=== PATIENT | female | born 1995 | race Caucasian/White ===

== ENCOUNTER → 2019-05-25 17:48 | Outpatient (CLI) | payer BC, SELFPAY ==
[2019-05-26 17:05] LABS: Chlamydia Trachomatis by PCR Negative (Negative); Neisserai gonorrhoeae by PCR Negative (Negative); Probe Check PASS; Sample Adequacy Control PASS; Specimen Processing Control PASS
[2019-06-01 13:02] LABS: HPV Reflexed? NOT INDICATED
== END ==
PROVIDERS: Referring Provider Obstetrics & Gynecology; Visit Provider Obstetrics & Gynecology
DX: Z12.4 Encounter for screening for malignant neoplasm of cervix (principal)
CPT/HCPCS: 87491; 87591; 88175; G0145

== ENCOUNTER → 2023-09-05 | Outpatient (CLI) | payer OTHER, SELFPAY ==
[2023-09-05 13:20] LABS: Absolute Lymphocyte Count 1.79 X10^3/uL (0.83-4.51); Absolute Neutrophil Count 9.3 X10^3/uL (2.0-7.7); Basophil# 0.08 X10^3/uL; Basophil% 0.7 % (0-1); Eosinophil# 0.08 X10^3/uL; Eosinophils% 0.7 % (0-5); Hemoglobin 14.4 g/dL (12.0-15.0); Lymphocyte # 1.79 X10^3/ul (0.83-4.51); Lymphocyte % 14.7 % (19-41); Mean Corp Hgb Conc 34.3 g/dL (32-36); Mean Corpuscular Hgb 29.4 pg (27.0-32.0); Mean Corpuscular Volume 85.9 fL (81-99); Monocyte# 0.88 X10^3/uL; Monocyte% 7.2 % (0-10); NRBC Flagged by Analyzer 0 % (0-5); Neutrophil # 9.25 X10^3/uL (2.7-7.7); Neutrophil % 75.9 % (47-70); Platelet Count 243 K/mm3 (150-450); RBC Distribution Width CV 12.7 % (11.6-14.6); RBC Distribution Width SD 39.5 fl (35.1-43.9); Red Blood Count 4.89 M/mm3 (4.2-5.4); White Blood Count 12.2 K/mm3 (4.4-11.0)
[2023-09-05 13:25] LABS: NATERA MAILED SPECIMEN
[2023-09-05 13:51] LABS: Thyroid Stim Hormone (TSH) 1.66 uIU/mL (0.358-3.74)
[2023-09-05 14:28] LABS: HIV - WCH Non-Reactive (Nonreactive); Hepatitis B Surface Antigen Non-Reactive (Nonreactive); Hepatitis C Antibody Non-Reactive (Nonreactive); Rubella IgG Reactive (Nonreactive); Syphilis Antibodies Non-reactive
[2023-09-06 04:07] LABS: Thyroid Peroxidase AB 531 IU/mL (0-34)
[2023-09-10 07:08] LABS: Chlamydia By Nucleic Acid AMP Negative (Negative); Gonococcus By Nucleic Acid AMP Negative (Negative)
[2023-09-10 23:17] LABS: HPV Reflexed? NOT INDICATED
== END | disposition home or self-care (01) ==
PROVIDERS: PCP Family Medicine; Referring Provider Advanced Practice Midwife; Visit Provider Advanced Practice Midwife
DX: O09.90 Supervision of high risk pregnancy, unspecified, unspecified trimester (principal); Z3A.00 Weeks of gestation of pregnancy not specified
CPT/HCPCS: 36415; 84443; 85025; 86376; 86703; 86762; 86780; 86803; 86850; 86900; 86901; 87086; 87088; 87340; 87491; 87591; 88175; G0145

== ENCOUNTER → 2023-09-21 | Outpatient (CLI) | payer OTHER, SELFPAY ==
--- NOTE | 2023-09-21 07:52 | US_ITS ---
STUDY: THYROID ULTRASOUND REASON FOR EXAM: Female, 28 years old. Palpably enlarged thyroid TECHNIQUE: Ultrasound evaluation of the thyroid was performed with real-time and static carlos-scale imaging. COMPARISON: None. FINDINGS: RIGHT LOBE: The right lobe of the thyroid gland measures 5 x 1.7 x 1.3 cm. There is a homogeneous echotexture. There are no demonstrated solid, cystic or complex lesions. LEFT LOBE: The left lobe of the thyroid gland measures 3.9 x 1.5 x 1.2 cm. There is a homogeneous echotexture. There are no demonstrated solid, cystic or complex lesions. ISTHMUS: The isthmus measures 0.34 cm. The regional lymph nodes are normal. US/Thyroid IMPRESSION: Normal ultrasound examination of the thyroid. Electronically Signed: Ethan Cheney MD at 12:16 EDT ,
== END | disposition home or self-care (01) ==
PROVIDERS: PCP Family Medicine; Referring Provider Advanced Practice Midwife; Visit Provider Advanced Practice Midwife
DX: E04.9 Nontoxic goiter, unspecified (principal)
CPT/HCPCS: 76536

== ENCOUNTER → 2023-11-29 | Outpatient (CLI) | payer OTHER, SELFPAY | END | disposition home or self-care (01) | LOC: LABSPEC 12:09 | PROVIDERS: PCP Family Medicine; Referring Provider Registered Nurse; Visit Provider Registered Nurse | DX: Z34.90 Encounter for supervision of normal pregnancy, unspecified, unspecified trimester (principal); R35.0 Frequency of micturition | CPT/HCPCS: 87086; 87088 ==

== ENCOUNTER → 2023-12-23 | Outpatient (CLI) | payer OTHER, SELFPAY ==
[2023-12-23 12:03] LABS: Absolute Lymphocyte Count 1.59 X10^3/uL (0.83-4.51); Absolute Neutrophil Count 8.1 X10^3/uL (2.0-7.7); Basophil# 0.07 X10^3/uL; Basophil% 0.7 % (0-1); Eosinophil# 0.14 X10^3/uL; Eosinophils% 1.3 % (0-5); Hematocrit 38.8 % (37-47); Hemoglobin 12.8 g/dL (12.0-15.0); Lymphocyte # 1.59 X10^3/ul (0.83-4.51); Lymphocyte % 14.8 % (19-41); Mean Corpuscular Hgb 29.4 pg (27.0-32.0); Mean Platelet Vol. 10.1 fl (6.2-12.0); Monocyte# 0.67 X10^3/uL; Monocyte% 6.2 % (0-10); NRBC Flagged by Analyzer 0 % (0-5); Neutrophil # 8.09 X10^3/uL (2.7-7.7); Neutrophil % 75.1 % (47-70); Platelet Count 204 K/mm3 (150-450); RBC Distribution Width CV 13.1 % (11.6-14.6); RBC Distribution Width SD 42.7 fl (35.1-43.9); Red Blood Count 4.36 M/mm3 (4.2-5.4); White Blood Count 10.8 K/mm3 (4.4-11.0)
[2023-12-23 13:18] LABS: HIV - WCH Non-Reactive (Nonreactive); Syphilis Antibodies Non-reactive
[2023-12-23 13:27] LABS: Glucose Challenge Gest 1H 50g 157 mg/dL (70-140)
== END | disposition home or self-care (01) ==
LOC: LAB 10:59
PROVIDERS: PCP Family Medicine; Visit Provider Registered Nurse
DX: O44.40 Low lying placenta NOS or without hemorrhage, unspecified trimester (principal); O99.280 Endocrine, nutritional and metabolic diseases complicating pregnancy, unspecified trimester; E04.9 Nontoxic goiter, unspecified; Z3A.00 Weeks of gestation of pregnancy not specified
CPT/HCPCS: 36415; 82950; 85025; 86703; 86780

== ENCOUNTER 2023-12-28 12:14 | Outpatient (CLI) | payer OTHER, SELFPAY ==
--- OUTSIDE RECORDS SUMMARY | 2023-12-28 12:27 | XMS RPT_ITS | CCD ---
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 [id number] 1997 Unknown [id number] 2.16. [id number] Unknown [id number] Summary Purpose Family History No Family History Records FoundNo Family History Records Found Advance Directives No Advanced Directives Records FoundNo Advanced Directives Records Found Additional Source Comments INFORMATION SOURCE (unrecogn ized section and content) DATE CREATED AUTHOR AUTHOR'S ORGANIZ ATION 11/12/2023 [facility] FOR RECORDS PERTAINING TO PATIENTS WHO ARE OR HAVE BEEN ENROLLED IN A CHEMICAL DEPENDENCY/SUBSTANCEABUSE PROGRAM, SOME INFORMATION MAY BE OMITTED. This clinical summary was aggregated from multiple sources. Caution should be exercised in using it in the provision of clinical care. This summary normalizes information from multiple sources, and as a consequence, information in this document may materially change the coding, format and clinical context of patient data. In addition, data may be omitted in some cases. CLINICAL DECISIONS SHOULD BE BASED ON THE PRIMARY CLINICAL RECORDS. [facility]. provides no warranty or guarantee of the accuracy or completeness of information in this document.
[2023-12-28 12:35] VITALS: BP 138/78; PULSE 99; TEMP 36.8; O2SAT 95
[2023-12-28 12:53] VITALS: BMI 33.6
--- NOTE | 2023-12-28 13:01 | OB.TRI.PN ---
Progress Notes Date of Service: 12/28/23 Progress Note: Patient presents for triage evaluation secondary to decreased movement FHT: 145 Moderate variability reactive no decelerations category I tracing [place]: no Contractions Assessment and plan: moderate variability and accelerations. Reactive NST, reassuring maternal and status patient discharged to home to follow-up at next appointment . See problem list details for additional plan information. Charges/Coding Multi Select Codes Urinary/Genital Urinary/Genital CPT Codes: 21717-92 non-stress test Interp Assessment & Plan (1) Decreased movement: COMMENT: 27 weeks reactive in WP. d/c home
== END 2023-12-28 13:05 | disposition home or self-care (01) ==
LOC: WPOUT 12:25 → WP 12:26
PROVIDERS: PCP Family Medicine; Visit Provider Advanced Practice Midwife
DX: O36.8120 Decreased fetal movements, second trimester, not applicable or unspecified (principal); Z3A.27 27 weeks gestation of pregnancy
CPT/HCPCS: 59025; 59050; 99221; G0378

== ENCOUNTER → 2023-12-30 | Outpatient (CLI) | payer OTHER, SELFPAY ==
--- OUTSIDE RECORDS SUMMARY | 2023-12-30 06:52 | XMS RPT_ITS | CCD ---
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 [id number] 1997 Unknown [id number] 2.16. [id number] Unknown [id number] Summary Purpose Family History No Family History Records FoundNo Family History Records Found Advance Directives No Advanced Directives Records FoundNo Advanced Directives Records Found Additional Source Comments INFORMATION SOURCE (unrecogn ized section and content) DATE CREATED AUTHOR AUTHOR'S ORGANIZ ATION 11/12/2023 [facility] FOR RECORDS PERTAINING TO PATIENTS WHO ARE [...] BE BASED ON THE PRIMARY CLINICAL RECORDS. [facility]. provides no warranty or guarantee of the accuracy or completeness of information in this document.
[2023-12-30 08:19] LABS: Glucose GTT-Gestation. Fasting 101 mg/dL (<105)
[2023-12-30 09:22] LABS: Glucose GTT-Gestational 1 Hr 187 mg/dL (<190)
[2023-12-30 10:14] LABS: Glucose GTT-Gestational 2 Hr 168 mg/dL (<165)
[2023-12-30 11:11] LABS: Glucose GTT-Gestational 3 Hr 128 L (<145)
== END | disposition home or self-care (01) ==
LOC: LAB 06:46
PROVIDERS: PCP Family Medicine; Referring Provider Registered Nurse; Visit Provider Registered Nurse
DX: Z13.1 Encounter for screening for diabetes mellitus (principal)
CPT/HCPCS: 36415; 82951; 82952

== ENCOUNTER 2024-01-14 07:37 | Outpatient (RCR) | payer OTHER, SELFPAY | END 2024-01-23 23:59 | LOC: DC 07:37 | PROVIDERS: PCP Family Medicine; Referring Provider Advanced Practice Midwife; Visit Provider Advanced Practice Midwife | DX: O24.419 Gestational diabetes mellitus in pregnancy, unspecified control (principal) | CPT/HCPCS: 97802; 97803 ==

== ENCOUNTER → 2024-01-24 | Outpatient (CLI) | payer OTHER, SELFPAY ==
--- NOTE | 2024-01-24 16:55 | US_ITS ---
ACR Level 3 findings have been noted. An addendum which confirms receipt of the report will follow. EXAM: US , LIMITED CLINICAL INDICATION: GDM TECHNIQUE: Real-time limited ultrasound of the maternal uterus with image documentation. COMPARISON: No relevant prior studies available. FINDINGS: LIMITATIONS: Limited anatomic assessment secondary to gestational age. FETUS: Single viable IUP. There is a nuchal cord best assessed on cine images provided by the imaging index clerk. GESTATIONAL AGE: Estimated gestational age: 32 weeks, 2 days. JACINTO: 03/18/2024. BPD: 7.84 cm. HC: 29.60 cm. AC: 28.52 cm. FL: 6.19 cm. POSITION: Cephalic presentation. HEART RATE: heart rate is 142 bpm. PLACENTA: Anterior placenta. AMNIOTIC FLUID: Amniotic fluid volume is 14.5 cm with largest fluid pocket of 4.9 cm. CERVIX: The cervix measures 3.7 cm. The internal cervical os closed. US/OB Limited With Biometrics IMPRESSION: 1. Single viable IUP. 2. There is a nuchal cord best assessed on cine images provided by the imaging index clerk. 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 Electronically Signed: Lamont Nolen DO at 16:55 EST ,
== END | disposition home or self-care (01) ==
PROVIDERS: PCP Family Medicine; Referring Provider Obstetrics & Gynecology; Visit Provider Obstetrics & Gynecology
DX: O24.419 Gestational diabetes mellitus in pregnancy, unspecified control (principal); Z3A.00 Weeks of gestation of pregnancy not specified
CPT/HCPCS: 76816

== ENCOUNTER → 2024-01-28 | Outpatient (CLI) | payer OTHER, SELFPAY ==
--- OUTSIDE RECORDS SUMMARY | 2024-01-28 10:20 | XMS RPT_ITS | CCD ---
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 [employer] Name Role Phone JAMIN RAMIREZ Referring UnavailLUCIANA Gray Attending Unavailable CHEYENNE ARTHUR Primary Care Unavailable JAMIN RAMIREZ Attending UnavailJAMIN Schuster Referring Unavailnilsa e CHEYENNE ARTHUR Primary Care Unavailable JAMIN RAMIREZ Referring UnavailCHEYENNE Pierce Primary Care Unavailable PIPER SCHMIDT Attending Unavailable Results Test Name Value Interpretation Reference Range Facil ity Encounters Encounter Date Encounter Type Care Provider Facility Start: 01-02-2024 End: 01-02-2024 ambulatory JAMIN RAMIREZ [facility] Start: 11-11-2023 ambulatory JAMIN RAMIREZ [facility] Start: 10-31-2023 End: 10-31-2023 ambulatory JAMIN RAMIREZ [facility] spital Payers Date Payer Category Payer Unknown [id number] 2.16. [id number] 1997 Unknown [id number] 2.16. [id number] 1997 Unknown [id number] 2.16. [id number] Unknown [id number] Unknown [id number] Unknown [id number] Summary Purpose Family History No Family History Records FoundNo Family History Records Found Advance Directives No Advanced Directives Records FoundNo Advanced Directives Records Found Additional Source Comments INFORMATION SOURCE (unrecogn ized section and content) DATE CREATED AUTHOR AUTHOR'S ORGANIZ ATION 01/07/2024 [facility] FOR RECORDS PERTAINING TO PATIENTS WHO [...] BE BASED ON THE PRIMARY CLINICAL RECORDS. [facility] [employer], [facility]. provides no warranty or guarantee of the accuracy or completeness of information in this document.
[2024-01-28 10:47] LABS: T4 Free Direct 0.63 ng/dL (0.76-1.46); Thyroid Stim Hormone (TSH) 1.27 uIU/mL (0.358-3.74)
[2024-01-28 11:09] LABS: Free T3 2.3 pg/mL (2.18-3.98)
== END | disposition home or self-care (01) ==
LOC: LAB 09:47
PROVIDERS: Advanced Practice Midwife; PCP Family Medicine; Referring Provider Internal Medicine Endocrinology, Diabetes & Metabolism; Visit Provider Internal Medicine Endocrinology, Diabetes & Metabolism
DX: E04.9 Nontoxic goiter, unspecified (principal); E06.3 Autoimmune thyroiditis
CPT/HCPCS: 36415; 84439; 84443; 84481

== ENCOUNTER → 2024-03-02 | Outpatient (CLI) | payer OTHER, SELFPAY | END | disposition home or self-care (01) | LOC: LABSPEC 13:02 | PROVIDERS: Referring Provider Obstetrics & Gynecology; Visit Provider Obstetrics & Gynecology | DX: O09.90 Supervision of high risk pregnancy, unspecified, unspecified trimester (principal); Z3A.00 Weeks of gestation of pregnancy not specified | CPT/HCPCS: 87077; 87081; 87186 ==

== ENCOUNTER → 2024-03-03 | Outpatient (CLI) | payer OTHER, SELFPAY ==
--- NOTE | 2024-03-03 14:04 | US_ITS ---
STUDY: SECOND AND THIRD TRIMESTER OBSTETRICAL ULTRASOUND REASON FOR EXAM: Female, 28 years old . growth. LMP: June 20, 2023. TECHNIQUE: Transabdominal TECHNICAL QUALITY: Adequate. PRIOR ULTRASOUND: Comparison is made with prior study January 24, 2024. FINDINGS: There is a single intrauterine fetus. The fetus is in a cephalic presentation. There is demonstrated cardiac activity with a heart rate of 130 bpm. There is a normal amniotic fluid volume. The largest amniotic fluid pocket measures 5.2 cm. The amniotic fluid index (MI) is 12.2 cm. The placenta is anterior in location and is not low lying. There are Grade 3 placental changes. The cervix was not measured due to the head position. The adnexal regions are not visualized. BIOMETRY: BPD: 8.62 cm: 34 weeks, 5 days HC: 32.72 cm: 37 weeks, 1 days AC: 33.46 cm: 37 weeks, 3 days FL: 7.31 cm: 37 weeks, 3 days CI: 75% FL/BPD: 85% FL/HC: FL/AC: 22% HC/AC: 0.98 age by current US: 37 weeks, 1 days. JACINTO by current US: March 23, 2024. Estimated weight: 3097 grams, +/- 465 grams, 63 %. age by prior US: 37 weeks, 6 days. JACINTO by prior US: March 18, 2024. Age by LMP: 36 weeks, 5 days. JACINTO by LMP: March 26, 2024. US/OB Limited With Biometrics IMPRESSION: Single live intrauterine gestation with a mean gestational age of 37 weeks and 6 days. The measurements obtained today fall within the normal expected range. Electronically Signed: Steve Hinson MD at 12:23 EDT ,
== END | disposition home or self-care (01) ==
PROVIDERS: PCP Family Medicine; Referring Provider Obstetrics & Gynecology; Visit Provider Obstetrics & Gynecology
DX: O24.419 Gestational diabetes mellitus in pregnancy, unspecified control (principal); Z3A.00 Weeks of gestation of pregnancy not specified
CPT/HCPCS: 76816

== ENCOUNTER 2024-03-19 19:13 | Inpatient (IN) | payer OTHER, SELFPAY ==
[2023-12-28 12:35] VITALS: RESP 16
--- NOTE | 2024-03-19 19:38 | HP.PCM.OB_ITS ---
HPI - General General Date of Admission: 03/19/24 Date of Service: 03/19/24 HPI Narrative LEANA BAY, is a 28 F 39.0 weeks who presents to unit for IOL secondary to GDM Maternal Data Information JACINTO Calculator Estimated Delivery Date Method Current WG Current Estimate 03/26/24 LMP (Certain) 39w 0d Final JACINTO: 03/26/24 Final JACINTO Source: US >20 weeks Gestational age: 39.0 PFSH PFSH Medical History Thelma's thyroiditis Home Medications vit,calcium no.40-iron fum 27 mg iron-folate no.1 1 mg tablet (PNV- Select) 1 tab PO 09/05/23 [History Last Taken Unknown] sodium chloride 0.65 % nasal spray aerosol ([place] Saline) 2 spray intranasal Q4H 11/29/23 [History Last Taken Unknown] blood sugar diagnostic (Blood Glucose Test strips) #120 ea 12/30/23 [Rx Last Taken Unknown] blood-glucose meter #1 ea 12/30/23 [Rx Last Taken Unknown] lancets #200 ea 12/30/23 [Rx Last Taken Unknown] aspirin 81 mg tablet,delayed release 81 mg PO DAILY 01/28/24 [History Last Taken Unknown] levothyroxine 88 mcg tablet 88 mcg PO DAILY #90 tabs 01/28/24 [Rx Last Taken Unknown] metformin 1,000 mg tablet 1,000 mg PO BID #60 tabs 01/28/24 [Rx Last Taken Unknown] BD Ultra-Fine Domitila Pen Needle 32 gauge x 5/32 (pen needle, diabetic) #100 ea 02/03/24 [Rx Last Taken Unknown] BD Ultra-Fine Mini Pen Needle 31 gauge x 3/16 (pen needle, diabetic) #100 ea 02/06/24 [Rx Last Taken Unknown] insulin NPH isoph U-100 human 100 unit/mL (3 mL) subcutaneous pen (Humulin N NPH U-100 Insulin KwikPen) 30 unit subcut BID 02/18/24 [History Last Taken Unknown] Allergy/AdvReac Type Severity Reaction Status Date / Time No Known Allergies Allergy Verified 03/19/24 09:18 Family History Unknown Breast cancer Father Asthma Grandmother No problems noted. 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 History 1 Elective abortions Hx Para 0 Spontaneous abortions Hx # Term Pregnancies Ectopic pregnancies Hx # Pregnancies Multiple births # of living children Visit Details Expected Delivery Route/Plan Labor Preferences- CB/BF classes: enc, planning on all 3 labor support person:Yoni labor intervention preferences: [] pain management options preferred: epidural cut cord/dad catch: yes : yes PP control planned: discussed discussed possible routes of delivery and associated risks: [] special requests: [] Plans Covid status: + 09/2023 Flu vaccine: declines Tdap vaccine: [] Rhogam: NA LARC form signed: yes Problem list reviewed and updated with the most current plan of care details and appropriate orders placed. Relevant counseling for the gestational age provided. Continue routine care and follow up unless otherwise noted in visit notes/problem list details OB Flowsheet Initial Weight: Not Recorded Date -?-?-?-?-?-?-?-?-?-?-?-?- EGA Weight BP Urine Prot -?-?-?-?-?-?-?-?-?-?-?-?- Glucose FHR FuHt Pres Dilation -?-?-?-?-?-?-?-?-?-?-?-?- Effaced St Visit Note 09/05/23 -?-?-?-?-?-?-?-?-?-?-?-?- 11w 0d 176 lb 122/84 -?-?-?-?-?-?-?-?-?-?-?-?- 160 -?-?-?-?-?-?-?-?-?-?-?-?- KW- CRL cons wit h LMP. doing well. thyroid labs drawn. Had nl work up about 10 years ago but slightly enlarged then. wants NIPT and Carrier. 10/01/23 -?-?-?-?-?-?-?-?-?-?-?-?- 14w 5d 182 lb 6 oz 121/80 Nega tive -?-?-?-?-?-?-?-?-?-?-?-?- Negative 145 -?-?-?-?-?-?-?-?-?-?-?-?- KW- no vb/crampi ng. no concerns today. magnesium supplement for hx migraines. Tylenol and caffeine encouraged. 10/31/23 -?-?-?-?-?-?-?-?-?-?-?-?- 19w 0d 187 lb 111/62 Negative -?-?-?-?-?-?-?-?-?-?-?-?- Negative 145 -?-?-?-?-?-?-?-?-?-?-?-?- kw-no vb/crampin g. possible flutters. many questions today. letter for work today. anatomy scan today. 11/29/23 -?-?-?-?-?-?-?-?-?-?-?-?- 23w 1d 196 lb 106/66 Trace A -?-?-?-?-?-?-?-?-?-?-?-?- Negative 155 -?-?-?-?-?-?-?-?-?-?-?-?- LC- feeling flut ters. urinary frequency/urgency. obtaining dip and culture. macrobid rx sent. 28 week labs sent.no vb/ctx/lof. 12/25/23 -?-?-?-?-?-?-?-?-?-?-?-?- 26w 6d 204 lb 4 oz 120/66 Nega tive -?-?-?-?-?-?-?-?-?-?-?-?- Negative 154 -?-?-?-?-?-?-?-?-?-?-?-?- -NO VB, LOF. G ood FM. Needs 3hr GTT. Larc. Endo ref sent 01/08/24 -?-?-?-?-?-?-?-?-?-?-?-?- 28w 6d 201 lb 6 oz 135/81 Nega tive -?-?-?-?-?-?-?-?-?-?-?-?- Negative 140 -?-?-?-?-?-?-?-?-?-?-?-?- JV- fasting gluc ose levels all elevated. starting metformin. needs to have endo appt moved up. start testing twice weekly. has persistent dec. fm. 01/21/24 -?-?-?-?-?-?-?-?-?-?-?-?- 30w 5d 203 lb 126/79 Negative -?-?-?-?-?-?-?-?-?-?-?-?- Negative 140 30 -?-?-?-?-?-?-?-?-?-?-?-?- SM- no vb lof re viewed BS, still some elevatedi n am but overall controlled. 02/04/24 -?-?-?-?-?-?-?-?-?-?-?-?- 32w 5d 199 lb 2 oz 116/80 Nega tive -?-?-?-?-?-?-?-?-?-?-?-?- Negative 140 32 -?-?-?-?-?-?-?-?-?-?-?-?- SM- no vb lof go od fm no regular ctx 02/06/24 -?-?-?-?-?-?-?-?-?-?-?-?- 33w 0d 199 lb 2 oz 116/75 Nega tive -?-?-?-?-?-?-?-?-?-?-?-?- Negative 140 -?-?-?-?-?-?-?-?-?-?-?-?- -NST only reac tive. Dr Rowan change to humulin N 20U bid and having better control 02/11/24 -?-?-?-?-?-?-?-?-?-?-?-?- 33w 5d 202 lb 6 oz 119/74 Nega tive -?-?-?-?-?-?-?-?-?-?-?-?- Negative 135 -?-?-?-?-?-?-?-?-?-?-?-?- KW- NST only. Re active. 02/13/24 -?-?-?-?-?-?-?-?-?-?-?-?- 34w 0d 200 lb 8 oz 116/76 Nega tive -?-?-?-?-?-?-?-?-?-?-?-?- Negative 130 34 -?-?-?-?-?-?-?-?-?-?-?-?- KW- NST reactive . no concerns. Growth scheduled for 03/03. BS to . have been increasing the last few days but still under range. 02/18/24 -?-?-?-?-?-?-?-?--?-?-?-?- 34w 5d 204 lb 116/76 Negative -?-?-?-?-?-?-?-?-?-?-?-?- Negative 140 -?-?-?-?-?-?-?-?-?-?-?-?- SM- no vb lof go od fm no regular ctx KW- no vb/lof/ctx. good fm. discussed POC and 39 week IOL. tearful today and having anxiety about L&D. reassured. 02/21/24 -?-?-?-?-?-?-?-?-?-?-?-?- 35w 1d 202 lb 114/76 -?-?-?-?-?-?-?-?-?-?-?-?- 140 -?-?-?-?-?-?-?-?-?-?-?-?- SM- no vb lof go od fm no regular ctx 02/24/24 -?-?-?-?-?-?-?-?-?-?-?-?- 35w 4d 202 lb 117/77 Negative -?-?-?-?-?-?-?-?-?-?-?-?- Negative 140 -?-?-?-?-?-?-?-?-?-?-?-?- JV- nst reactive . does not have glucose log with her but will bring to visit on saturday. needs gbs then also 02/28/24 -?-?-?-?-?-?-?-?-?-?-?-?- 36w 1d 202 lb 6 oz 118/78 Nega tive -?-?-?-?-?-?-?-?-?-?-?-?- Negative 140 -?-?-?-?-?-?-?-?-?-?-?-?- SM- no vb lof go od fm nor egular ctx reviewed BS logs, continuing to increase 03/02/24 -?-?-?-?-?-?-?-?-?-?-?-?- 36w 4d 203 lb 4 oz -?-?-?-?-?-?-?-?-?-?-?-?- 130 -?-?-?-?-?-?-?-?-?-?-?-?- Sm- no vb lof go od fm no regualr ctx gbs collected 03/05/24 -?-?-?-?-?-?-?-?-?-?-?-?- 37w 0d 205 lb 6 oz 128/80 Trac e -?-?-?-?-?-?-?-?-?-?-?-?- Negative 130 37 -?-?-?-?-?-?-?-?-?-?-?-?- SM- no vb lof go od fm nor regular ctx 03/09/24 -?-?-?-?-?-?-?-?-?-?-?-?- 37w 4d 203 lb 2 oz 115/77 Nega tive -?-?-?-?-?-?-?-?-?-?-?-?- Negative 140 -?-?-?-?-?-?-?-?-?-?-?-?- JV- well control led glucose. gbs pos. IOL set up for 03/19 at 7 pm. need recheck next visit and sign consent. 03/12/24 -?-?-?-?-?-?-?-?-?-?-?-?- 38w 0d 208 lb 126/83 -?-?-?-?-?-?-?-?-?-?-?-?- 140 -?-?-?-?-?-?-?-?-?-?-?-?- SM- BS controlle d no vb lof good fm n oregular ctx 03/16/24 -?-?-?-?-?-?-?-?-?-?-?-?- 38w 4d 205 lb 6 oz 112/75 Nega tive -?-?-?-?-?-?-?-?-?-?-?-?- Negative 140 38 0 -?-?-?-?-?-?-?-?-?-?-?-?- 10 -3 LC- fastin g BS controlled. no vb/ctx/lof. has IOL set up- plan cytotec overnight. 03/19/24 -?-?-?-?-?-?-?-?-?-?-?-?- 39w 0d 206 lb 6 oz 110/74 Nega tive -?-?-?-?-?-?-?-?-?-?-?-?- Negative 150 -?-?-?-?-?-?-?-?-?-?-?-?- JV- NST Reactive . IOL set for tonight NST FHR Rate Baby A Baseline: 135 Variability:: Moderate Accelerations:: 15 x 15 Decelerations:: None NST Reactive:: Yes FHR Category:: Category I Uterine Activity:: none ROS Constitutional Constitutional: Denies change in weight, fatigue, fever(s), headache(s), poor appetite or weakness Eyes Eyes: Denies blurry vision, change in vision, floaters, seeing flashes or spots in vision ENT HEENT: Denies dizziness, headache(s), loss taste/smell or sore throat Cardiovascular Cardiovascular: Denies chest pain, dizziness, dyspnea, irregular heart rhythm, lightheadedness, palpitations or rapid heart rate Respiratory/Chest Respiratory/Chest: Denies change in mental status, chest tightness, cough, dyspnea or breast pain Gastrointestinal Gastrointestinal: Denies anorexia, chewing difficulty, constipation, diarrhea or weight changes Genitourinary Genitourinary: Denies difficulty urinating, dysuria, flank pain, genital pain, urinary frequency or urinary urgency Musculoskeletal Musculoskeletal: Denies back pain, difficulty walking, extremity pain, joint pain, muscle cramps or muscle weakness Integumentary Integumentary: Denies lesions or unusual bruising Neurologic Neurologic: Denies abnormal movements, abnormal speech, dizziness, numbness, seizure-like activity, syncope or weakness Psychiatric Psychiatric: Denies behavioral changes, change in appetite, confusion, depression, homicidal ideation, suicidal ideation or suicidal thoughts Endocrine Endocrinology: Denies excessive sweating, polydipsia or polyuria Hematologic/Lymphatic Hematologic/Lymphatic: Denies anemia Allergic/Immunologic Allergic/Immunologic: Denies itchy eyes, lip swelling, throat swelling, tongue swelling or wheezing Physical Exam Const alert, oriented x3 and no apparent distress General Appearance: cooperative Orientation / Consciousness: awake HEENT normocephalic Neck full ROM Lymph Lymphatic: no lymphadenopathy noted Chest inspection of chest normal Resp normal respiratory effort and normal air movement Effort and Inspection: able to speak in complete sentences and symmetric chest movement GI soft to palpation and non-tender Inspection: gravid Palpation: soft; Negative for tender external exam normal Manual OB Exam: dilated 0, effaced thick and station high Back/Spine normal to inspection Extremity normal to inspection and full ROM Skin no rashes or lesions noted Psych mental status grossly normal Appearance: grossly normal Speech: normal speech Labs Labs Labs: Blood Type O POSITIVE Antibody Screen NEGATIVE Hct 38.8 % (37-47) Hgb 12.8 g/dL (12.0-15.0) Obstetrics Ultrasound Syphilis Total Ab Non-reactive Rubella IgG Antibody Reactive (Nonreactive) Hep Bs Antigen Non-Reactive (Nonreactive) Hepatitis C Antibody Non-Reactive (Nonreactive) Chlamydia DNA (ARCHIE) Negative (Negative) N.gonorrhoeae DNA (ARCHIE) Negative (Negative) HIV 1&2 Antibody Non-Reactive (Nonreactive) Glucose 1 Hr 50 gm 157 mg/dL (70-140) H Gest Glucose Tolerance MG/DL Assessment & Plan (1) Encounter for induction of labor: PLAN: Patient presents IOL, plan management for with pitocin/AROM. Pain management: plans epidural. GBS positive. Management of any complications: GDM I have reviewed the [facility] and made any clinically relevant updates. (2) Positive GBS test: COMMENT: PCN in labor (3) Thelma's thyroiditis: (4) Gestational diabetes mellitus (GDM) affecting , antepartum: COMMENT: testing 4x daily. nutrition consult started on metformin 01/08/24. 02/06/24 Dr Rowan monitor/Humulin N 20U bid/better control start nst's twice weekly at 32 weeks deliver 39 growth us 32 and 36(EFW 63%, AC 79%). 30 Units insulin AM, 28Units PM 03/11 increased to 50u AM and 34u at PM (5) COVID-19 affecting , antepartum: COMMENT: 81mg ASA daily (6) Supervision of high risk , antepartum: COMMENT: PRR, JACINTO 03/26/24 surprise Spouse- Yoni (7) : QUALIFIERS: Weeks of gestation: 39 weeks Qualified Code(s): Z3A.39 - 39 weeks gestation of COMMENT: declines carrier and NIPT (no gender), nl anatomy, nl growth (8) Scoliosis: QUALIFIERS: Scoliosis type: unspecified scoliosis Spinal region: unspecified Qualified Code(s): M41.9 - Scoliosis, unspecified Charges/Coding Multi Select Codes Urinary/Genital Urinary/Genital CPT Codes: No Charge
[2024-03-19 19:40] VITALS: BP 128/81; PULSE 105; RESP 16; TEMP 36.4; O2SAT 94
[2024-03-19 20:11] VITALS: BMI 34.7
[2024-03-19] MEDS: Lactated Ringers 1,000 ML 50 ML IV (20:45)
[2024-03-19 20:59] LABS: Absolute Lymphocyte Count 2.75 X10^3/uL (0.83-4.51); Absolute Neutrophil Count 9.9 X10^3/uL (2.0-7.7); Basophil% 0.7 % (0-1); Eosinophil# 0.22 X10^3/uL; Eosinophils% 1.6 % (0-5); Hematocrit 39.1 % (37-47); Hemoglobin 13.4 g/dL (12.0-15.0); Lymphocyte # 2.75 X10^3/ul (0.83-4.51); Lymphocyte % 19.6 % (19-41); Mean Corp Hgb Conc 34.3 g/dL (32-36); Mean Corpuscular Volume 84.6 fL (81-99); Mean Platelet Vol. 10.5 fl (6.2-12.0); Monocyte# 0.89 X10^3/uL; Monocyte% 6.4 % (0-10); NRBC Flagged by Analyzer 0 % (0-5); Neutrophil # 9.88 X10^3/uL (2.7-7.7); Neutrophil % 70.5 % (47-70); Platelet Count 182 K/mm3 (150-450); RBC Distribution Width CV 12.9 % (11.6-14.6); RBC Distribution Width SD 39.1 fl (35.1-43.9); Red Blood Count 4.62 M/mm3 (4.2-5.4)
[2024-03-19] MEDS: miSOPROStol 25 MCG TABLET VAGINAL (21:16)
[2024-03-19 21:33] LABS: Syphilis Antibodies Non-reactive
[2024-03-19 21:41] LABS: Bedside Glucose 80 mg/dL (74-106)
[2024-03-19 21:41] LABS: Bedside Glucose 75 mg/dL (74-106)
[2024-03-19 23:19] VITALS: BP 133/69; PULSE 98; RESP 16; TEMP 36.3
[2024-03-20] VITALS (62 sets, daily range): BP systolic 107–138; BP diastolic 55–84; PULSE 61–116; RESP 16–18; TEMP 36.3–37.2; O2SAT 94–99
[2024-03-20] MEDS: Levothyroxine 88 MCG Tablet PO (01:44)
[2024-03-20] MEDS: miSOPROStol 50 MCG TABLET VAGINAL ×2 (01:47→08:31)
[2024-03-20 02:10] LABS: Bedside Glucose 53 mg/dL (74-106)
[2024-03-20 02:10] LABS: Bedside Glucose 67 mg/dL (74-106)
[2024-03-20 06:24] LABS: Bedside Glucose 61 mg/dL (74-106)
[2024-03-20] MEDS: 0.9% Normal Saline Single 100 ML IV.SOLN. INTRA-UTER (08:30)
--- NOTE | 2024-03-20 08:41 | PCM.PN.OB ---
Subjective Subjective comfortable Objective Data Objective Data Vital Signs: Vital Signs Temp Pulse Resp BP Pulse Ox 98.7 F 85 16 110/72 94 03/20/24 07:15 03/20/24 07:26 03/20/24 07:15 03/20/24 07:26 03/19/24 19:40 Weight: 209 lb Body Mass Index (BMI) 34.7 Intake & Output: Intake and Output for Last 24 Hours 03/18/24 03/19/24 03/20/24 23:59 23:59 23:59 Output Total 250 / 250 Balance -250 / -250 Lab / Micro Data 03/19/24 20:45 Labs: Laboratory Results - last 24 hr 03/19/24 20:07: POC Glucose 80 03/19/24 20:45: WBC 14.0 H, RBC 4.62, Hgb 13.4, Hct 39.1, MCV 84.6, MCH 29.0, MCHC 34.3, RDW Std Deviation 39.1, RDW Coeff of Min 12.9, Plt Count 182, MPV 10.5, Immature Gran % (Auto) 1.200 H, Neut % (Auto) 70.5 H, Lymph % (Auto) 19.6, Marshall % (Auto) 6.4, Eos % (Auto) 1.6, Baso % (Auto) 0.7, Absolute Neuts (auto) 9.9 H, Absolute Lymphs (auto) 2.75, Nucleated RBC % 0, Syphilis Total Ab Non-reactive, Blood Type O POSITIVE, Antibody Screen NEGATIVE 03/19/24 21:14: POC Glucose 75 03/20/24 01:29: POC Glucose 53 L 03/20/24 01:46: POC Glucose 67 L 03/20/24 06:03: POC Glucose 61 L Physical Exam Const alert and no apparent distress Neck full ROM Lymph Lymphatic: no lymphadenopathy noted Resp normal respiratory effort and normal air movement Cardio regular rate and regular rhythm GI normal to inspection, nondistended, normoactive bowel sounds Uterus Palpation: uterus fundus firm Back/Spine no CVA tenderness Extremity normal to inspection and full ROM Skin no rashes or lesions noted Psych mental status grossly normal NST FHR Rate Baby A Baseline: 130 Variability:: Moderate Accelerations:: 15 x 15 Decelerations:: None NST Reactive:: Yes FHR Category:: Category I Uterine Activity:: q4 Assessment & Plan (1) Encounter for induction of labor: COMMENT: cytotec increased to 50mcg. greenfield bulb inserted with 50mls taped. PLAN: cytotec with greenfield bulb. transition to pitocin instead of next dose.
[2024-03-20 10:28] LABS: Bedside Glucose 108 mg/dL (74-106)
[2024-03-20] MEDS: fentaNYL 100 MCG/2 ML Ampul IV (13:04)
[2024-03-20 13:14] LABS: Bedside Glucose 83 mg/dL (74-106)
[2024-03-20] MEDS: Lactated Ringers 1,000 ML 999 ML IV (13:35)
--- NOTE | 2024-03-20 13:46 | PN.OBGYN_ITS ---
Subjective Subjective contractions getting more uncomfortable. Objective Data Objective Data Vital Signs: Vital Signs Temp Pulse Resp BP Pulse Ox 98.9 F 79 18 126/76 H 94 03/20/24 12:28 03/20/24 13:24 03/20/24 12:28 03/20/24 13:24 03/19/24 19:40 Weight: 209 lb Body Mass Index (BMI) 34.7 Intake & Output: Intake and Output for Last 24 Hours 03/18/24 03/19/24 03/20/24 23:59 23:59 23:59 Intake Total 692.5 / 692.5 Output Total 250 / 250 Balance -250 / -250 692.5 / 692.5 Lab / Micro Data 03/19/24 20:45 Labs: Laboratory Results - last 24 hr 03/19/24 20:07: POC Glucose 80 03/19/24 20:45: WBC 14.0 H, RBC 4.62, Hgb 13.4, Hct 39.1, MCV 84.6, MCH 29.0, MCHC 34.3, RDW Std Deviation 39.1, RDW Coeff of Min 12.9, Plt Count 182, MPV 10.5, Immature Gran % (Auto) 1.200 H, Neut % (Auto) 70.5 H, Lymph % (Auto) 19.6, [place] % (Auto) 6.4, Eos % (Auto) 1.6, Baso % (Auto) 0.7, Absolute Neuts (auto) 9.9 H, Absolute Lymphs (auto) 2.75, Nucleated RBC % 0, Syphilis Total Ab Non- reactive, Blood Type O POSITIVE, Antibody Screen NEGATIVE 03/19/24 21:14: POC Glucose 75 03/20/24 01:29: POC Glucose 53 L 03/20/24 01:46: POC Glucose 67 L 03/20/24 06:03: POC Glucose 61 L 03/20/24 10:02: POC Glucose 108 H 03/20/24 12:40: POC Glucose 83 NST FHR Rate Baby A Baseline: 140 Variability:: Moderate Accelerations:: 15 x 15 Decelerations:: None NST Reactive:: Yes Uterine Activity:: q2-3 minutes. Assessment & Plan (1) Encounter for induction of labor: COMMENT: cytotec increased to 50mcg. [place] bulb inserted with 50mls taped. (2) Positive GBS test: COMMENT: PCN in labor (3) Gestational diabetes mellitus (GDM) affecting , antepartum: COMMENT: testing 4x daily. nutrition consult started on metformin 01/08/24. 02/06/24 Dr Rowan monitor/Humulin N 20U bid/better control start nst's twice weekly at 32 weeks deliver 39 growth us 32 and 36(EFW 63%, AC 79%). 30 Units insulin AM, 28Units PM 03/11 increased to 50u AM and 34u at PM (4) Supervision of high risk , antepartum: COMMENT: PRR, JACINTO 03/26/24 surprise Spouse- Yoni (5) : QUALIFIERS: Weeks of gestation: 39 weeks Qualified Code(s): Z3A.39 - 39 weeks gestation of COMMENT: declines carrier and NIPT (no gender), nl anatomy, nl growth PLAN: Plan -greenfield now out. more confortable -epidural per request -start pitocin per protocol -PCN for GBS.
[2024-03-20] MEDS: Penicillin G Pot 5,000,000 UNITS in 0.9% Normal Saline (100mL MB+) 100 ML 150 UNITS IV (13:58)
[2024-03-20 14:25] LABS: Bedside Glucose 81 mg/dL (74-106)
[2024-03-20] MEDS: fentaNYL-bupivacaine (epidural) 100 ML BAG EPIDURAL ×2 (15:19→20:02)
[2024-03-20] MEDS: Lactated Ringers 1,000 ML 200 ML IV ×2 (15:31→22:14)
[2024-03-20 15:59] LABS: Bedside Glucose 86 mg/dL (74-106)
[2024-03-20] MEDS: Oxytocin 15 Units/NS 250ml 15 UNITS/250 ML IV.SOLN 2 UNITS IV (16:05)
[2024-03-20 16:27] LABS: Bedside Glucose 88 mg/dL (74-106)
--- NOTE | 2024-03-20 17:25 | PCM.PN.OB ---
Subjective Subjective comfortable with epidural Objective Data Objective Data Vital Signs: Vital Signs Temp Pulse Resp BP Pulse Ox 98.3 F 79 16 128/79 H 98 03/20/24 17:07 03/20/24 17:07 03/20/24 16:46 03/20/24 17:07 03/20/24 17:07 Weight: 209 lb Body Mass Index (BMI) 34.7 Intake & Output: Intake and Output for Last 24 Hours 03/18/24 03/19/24 03/20/24 23:59 23:59 23:59 Intake Total 3239.04 / 3239.04 Output Total 250 / 250 400 / 400 Balance -250 / -250 2839.04 / 2839.04 Lab / Micro Data 03/19/24 20:45 Labs: Laboratory Results - last 24 hr 03/19/24 20:07: POC Glucose 80 03/19/24 20:45: WBC 14.0 H, RBC 4.62, Hgb 13.4, Hct 39.1, MCV 84.6, MCH 29.0, MCHC 34.3, RDW Std Deviation 39.1, RDW Coeff of Min 12.9, Plt Count 182, MPV 10.5, Immature Gran % (Auto) 1.200 H, Neut % (Auto) 70.5 H, Lymph % (Auto) 19.6, [place] % (Auto) 6.4, Eos % (Auto) 1.6, Baso % (Auto) 0.7, Absolute Neuts (auto) 9.9 H, Absolute Lymphs (auto) 2.75, Nucleated RBC % 0, Syphilis Total Ab Non-reactive, Blood Type O POSITIVE, Antibody Screen NEGATIVE 03/19/24 21:14: POC Glucose 75 03/20/24 01:29: POC Glucose 53 L 03/20/24 01:46: POC Glucose 67 L 03/20/24 06:03: POC Glucose 61 L 03/20/24 10:02: POC Glucose 108 H 03/20/24 12:40: POC Glucose 83 03/20/24 13:50: POC Glucose 81 03/20/24 14:48: POC Glucose 86 03/20/24 15:48: POC Glucose 88 Physical Exam Resp normal respiratory effort and normal air movement GI normal to inspection, nondistended, normoactive bowel sounds Manual OB Exam: dilated 6, effaced 60 and station -2 Psych mental status grossly normal NST FHR Rate Baby A Baseline: 140 Variability:: Moderate Accelerations:: 15 x 15 Decelerations:: None NST Reactive:: Yes FHR Category:: Category I Assessment & Plan (1) Encounter for induction of labor: COMMENT: cytotec increased to 50mcg. [place] bulb inserted with 50mls taped. (2) Positive GBS test: COMMENT: PCN in labor (3) Gestational diabetes mellitus (GDM) affecting , antepartum: COMMENT: testing 4x daily. nutrition consult started on metformin 01/08/24. 02/06/24 Dr Rowan monitor/Humulin N 20U bid/better control start nst's twice weekly at 32 weeks deliver 39 growth us 32 and 36(EFW 63%, AC 79%). 30 Units insulin AM, 28Units PM 03/11 increased to 50u AM and 34u at PM PLAN: Plan at 39+1 IOL for GD -glucose well controlled in labor. current tracing: FHT: Moderate variability reactive no decelerations category I tracing [place]: qq2-4 Contractions reviewed tracing abnormalities since last note:none A/P: reassuring maternal and status. AROM for clear fluid, large amounts. IUPC and FSE placed for monitoring. continue on pitocin per protocol frequent position changes anticipate PCN for GBS.
[2024-03-20 17:33] LABS: Bedside Glucose 77 mg/dL (74-106)
[2024-03-20] MEDS: Penicillin G 3,000,000 Units 50 ML 100 UNITS IV ×2 (18:06→22:34)
[2024-03-20 18:15] LABS: Bedside Glucose 75 mg/dL (74-106)
[2024-03-20 19:32] LABS: Bedside Glucose 82 mg/dL (74-106)
[2024-03-20] MEDS: Ondansetron 4 MG/2 ML Vial IV (20:26)
[2024-03-20] MEDS: 0.9% Saline Lock 10 ML Syringe IV ×2 (20:26→21:35)
[2024-03-20 21:14] LABS: Bedside Glucose 87 mg/dL (74-106)
[2024-03-20 21:14] LABS: Bedside Glucose 80 mg/dL (74-106)
[2024-03-20] MEDS: DiphenhydrAMINE 50 MG/ML Syringe IV (21:35)
[2024-03-20 22:28] LABS: Bedside Glucose 81 mg/dL (74-106)
[2024-03-20 23:39] LABS: Bedside Glucose 87 mg/dL (74-106)
[2024-03-21] VITALS (52 sets, daily range): BP systolic 103–130; BP diastolic 57–72; PULSE 59–111; RESP 14–16; TEMP 36.2–37.4; O2SAT 92–100
[2024-03-21] MEDS: fentaNYL-bupivacaine (epidural) 100 ML BAG EPIDURAL ×2 (00:46→06:02)
[2024-03-21 00:52] LABS: Bedside Glucose 84 mg/dL (74-106)
[2024-03-21] MEDS: Penicillin G 3,000,000 Units 50 ML 100 UNITS IV ×2 (02:58→06:27)
[2024-03-21] MEDS: Lactated Ringers 1,000 ML 200 ML IV ×2 (03:14→08:16)
[2024-03-21 04:10] LABS: Bedside Glucose 81 mg/dL (74-106)
[2024-03-21 05:08] LABS: Bedside Glucose 82 mg/dL (74-106)
[2024-03-21 06:16] LABS: Bedside Glucose 84 mg/dL (74-106)
[2024-03-21] MEDS: Levothyroxine 88 MCG Tablet PO (06:26)
[2024-03-21 07:09] LABS: Bedside Glucose 82 mg/dL (74-106)
[2024-03-21] MEDS: Ondansetron 4 MG/2 ML Vial IV (08:12)
[2024-03-21 08:26] LABS: Bedside Glucose 92 mg/dL (74-106)
--- NOTE | 2024-03-21 09:48 | OP.PCM_ITS ---
Assessment & Plan (1) Encounter for induction of labor: COMMENT: cytotec increased to 50mcg. [place] bulb inserted with 50mls taped. (2) Positive GBS test: COMMENT: PCN in labor (3) Gestational diabetes mellitus (GDM) affecting , antepartum: COMMENT: testing 4x daily. nutrition consult started on metformin 01/08/24. 02/06/24 Dr Rowan monitor/Humulin N 20U bid/better control start nst's twice weekly at 32 weeks deliver 39 growth us 32 and 36(EFW 63%, AC 79%). 30 Units insulin AM, 28Units PM 03/11 increased to 50u AM and 34u at PM (4) Thelma's thyroiditis: Maternal Data Information JACINTO Calculator Estimated Delivery Date Method Current WG Current Estimate 03/26/24 LMP (Certain) 39w 2d Final JACINTO: 03/26/24 Final JACINTO Source: LMP Gestational age: 39.2 Vaginal Delivery Operative Information Date of Procedure: 03/21/24 Pre-Operative Diagnosis: see problem list Post-Operative Diagnosis: Surgery / Procedure Performed: Spontaneous Vaginal Delivery Type of Anesthesia: Epidural Estimated Blood Loss: 250 Time of Delivery: 09:10 Findings Description of Procedure: Patient began pushing and delivered the head in the DAVID presentation. The head was delivered atraumatically and a tight nuchal cord was identified. The anterior and posterior shoulders delivered without complication followed by the rest of the and was somersaulted over the cord, the infant was placed on the maternal abdomen. Delayed cord clamping was employed for approximately 5 minutes. Cord was clamped and cut and gentle traction was applied to the cord and the placenta delivered spontaneously immediately following it was noted to be intact with three-vessel cord. The perineum and vagina were inspected and noted to have no laceration. EBL was 250cc. Patient and tolerated delivery well, entered recovery phase bonding skin to skin. updated on delivery. consulted for insulin orders. plan to cut insulin dose in half. Presentation: Vertex Amniotic Membrane Rupture Type: Artificial Amniotic Fluid Description: Clear Placental Delivery Description: Spontaneous Placenta Disposition: [facility] Cord Vessel Description: 3 Vessels Cord Entanglement: Around neck x 1, tight Nuchal Cord Compression: Without compression A Gender: Male (1 minute): 8 (5 minute): 10 Delayed Cord Clamping: Yes Post Vaginal Delivery Medications Given After Delivery: IV Pitocin Episiotomy Description: None Laceration: None Complication Complications: None Procedures Urinary/Genital [id number]: [id number] Vaginal Delivery [facility]
[2024-03-21] MEDS: Oxytocin 15 Units/NS 250ml 15 UNITS/250 ML IV.SOLN 83 UNITS IV (09:52)
--- NOTE | 2024-03-21 09:56 | DCINST_ITS ---
Discharge Instructions Diet Discharge Diet: No restrictions Activity Discharge Activity: May Not Drive and May Shower May resume sexual activity in: 6 weeks Weight Bearing Status: Full weight bearing Dressing / Incision Call your doctor if your incision/area has: Sudden Increased Bleeding, Increased Pain/ Swelling and Foul Smelling Discharge Call your doctor if you observe: Fever of 101 or Higher, Numbness or Tingling, Change in Color, Inability to urinate, Inability to have a bowel movement, Using more than 1 pad per hour, Shortness of breath, Dizziness, Fainting spells, Chest pain, Calf discomfort and Uncontrolled pain Follow Up Care Please Follow Up With: Payton Drew CNM When: 6 weeks , please call office to make an appointment. Congratulations on the of your baby! Test Results: Test results from this visit will be discussed in further detail at your follow- up appointment, if applicable. Discharge Plan Admission Admit Date/Time: 03/19/24 19:13 Attending Provider: Payton Drew Primary Care Provider: Teto Dumont Discharge Orders/Prescriptions Prescriptions: No Action PNV-Select 27-1 mg tablet 1 tab PO [place] Saline 0.65 % aerosol,spray 2 spray intranasal Q4H Rx Instructions: while awake Humulin N NPH Insulin KwikPen 100 unit/mL (3 mL) insulin pen 30 unit subcut BID Rx Instructions: 30 units in the AM 24 units in the PM aspirin 81 mg tablet,delayed release (DR/EC) 81 mg PO DAILY metformin 1,000 mg tablet 1,000 mg PO BID Qty: 60 3RF levothyroxine 88 mcg tablet 88 mcg PO DAILY Qty: 90 1RF (DME) Blood Glucose Test Strip See Rx Instructions .MEDSUPPLY Qty: 120 5RF Rx Instructions: As directed-fasting & 2 hr post meals (DME) blood-glucose meter Misc See Rx Instructions .MEDSUPPLY Qty: 1 0RF Rx Instructions: As directed- Test fasting and 2 hours after meals (DME) lancets Misc See Rx Instructions .MEDSUPPLY Qty: 200 5RF Rx Instructions: As directed-fasting & 2 hr post meals (DME) pen needle, diabetic [BD Ultra-Fine Domitila Pen Needle] 32 gauge x 5/32 needle See Rx Instructions .ROUTE .MEDSUPPLY Qty: 100 2RF Rx Instructions: bid (DME) pen needle, diabetic [BD Ultra-Fine Mini Pen Needle] 31 gauge x 3/16 needle See Rx Instructions .Route Qty: 100 5RF Rx Instructions: bid Referrals / Follow Up: Teto Dumont MD [Primary Care Provider] -
[2024-03-21 10:00] LABS: Bedside Glucose 87 mg/dL (74-106)
[2024-03-21] MEDS: Insulin NPH Human 100 UNITS/ML PEN 17 UNITS SC ×2 (10:24→22:05)
[2024-03-21] MEDS: Naproxen 500 MG Tablet PO (14:20)
[2024-03-21 18:01] LABS: Bedside Glucose 128 mg/dL (74-106)
[2024-03-21] MEDS: Acetaminophen 500 MG Tablet 1000 MG PO (20:07)
[2024-03-21 22:37] LABS: Bedside Glucose 126 mg/dL (74-106)
[2024-03-22 02:52] VITALS: BP 108/58; PULSE 76; PULSE 79; RESP 16; TEMP 36.2; O2SAT 93; O2SAT 95; O2SAT 96
[2024-03-22] MEDS: Levothyroxine 88 MCG Tablet PO (05:09)
[2024-03-22] MEDS: Acetaminophen 500 MG Tablet 1000 MG PO (05:09)
[2024-03-22] MEDS: Naproxen 500 MG Tablet PO (05:10)
[2024-03-22 05:33] LABS: Bedside Glucose 69 mg/dL (74-106)
[2024-03-22 08:15] VITALS: BP 126/66; PULSE 92; RESP 16; TEMP 36.6; O2SAT 96
[2024-03-22 08:20] VITALS: BP 126/66; PULSE 90; O2SAT 96
[2024-03-22 08:54] LABS: Bedside Glucose 110 mg/dL (74-106)
--- NOTE | 2024-03-22 09:18 | PCM.PN.OB ---
Subjective Subjective Patient doing well without complaints. Tolerating PO. Ambulating and voiding without difficulty. Feeding well. Denies chest pain, shortness of breath, calf pain/swelling, fevers, chills, lightheadedness. Objective Data Objective Data Vital Signs: Vital Signs Temp Pulse Resp BP Pulse Ox O2 Del Method 98 F 90 16 126/66 H 96 Room Air 03/22/24 08:15 03/22/24 08:20 03/22/24 08:15 03/22/24 08:20 03/22/24 08:20 03/22/24 08:15 Oxygen Delivery Method Room Air Weight: 209 lb Body Mass Index (BMI) 34.7 Intake & Output: Intake and Output for Last 24 Hours 03/20/24 03/21/24 03/22/24 23:59 23:59 23:59 Intake Total 4082.37 / 4082.37 2795.80 / 2795.80 Output Total 700 / 700 1950 / 1950 Balance 3382.37 / 3382.37 845.80 / 845.80 Lab / Micro Data 03/19/24 20:45 Labs: Laboratory Results - last 24 hr 03/21/24 09:41: POC Glucose 87 03/21/24 17:40: POC Glucose 128 H 03/21/24 22:11: POC Glucose 126 H 03/22/24 05:13: POC Glucose 69 L 03/22/24 08:30: POC Glucose 110 H Physical Exam Const alert and no apparent distress Lymph Lymphatic: no lymphadenopathy noted Resp normal respiratory effort, normal air movement and no retractions Cardio regular rate and regular rhythm GI normal to inspection, nondistended, normoactive bowel sounds Uterus Palpation: uterus fundus firm Extremity normal to inspection, full ROM and normal capillary refill Skin no rashes or lesions noted Psych mental status grossly normal Assessment & Plan (1) (spontaneous vaginal delivery): COMMENT: LC IOL for GDM, boy (2) Gestational diabetes mellitus (GDM) affecting , antepartum: COMMENT: testing 4x daily. nutrition consult started on metformin 01/08/24. 02/06/24 Dr Rowan monitor/Humulin N 20U bid/better control start nst's twice weekly at 32 weeks deliver 39 growth us 32 and 36(EFW 63%, AC 79%). 30 Units insulin AM, 28Units PM 03/11 increased to 50u AM and 34u at PM 03/21- dose cut in half . 25u in AM 17u in PM, check sugars per protocol 03/22- hold insulin, monitor glucose PLAN: Plan s/p PPD # 1 1. routine post delivery care 2. breast feeding- support given 3. rh positive 4. rubella immune 5. d/c insulin today-monitor glucose at home fastings and before meals 6. d/c home today
[2024-03-22 13:51] VITALS: BP 120/71; PULSE 44; PULSE 76; O2SAT 80
[2024-03-22 14:00] VITALS: BP 120/96; PULSE 92; RESP 16; TEMP 36.6; O2SAT 96
[2024-03-22 14:15] LABS: Bedside Glucose 80 mg/dL (74-106)
--- NOTE | 2024-03-23 18:10 | DS.PCM_ITS ---
Providers Date of Admission: 03/19/24 Date of Discharge: 03/22/24 Primary Care Physician: Dr. Teto Dumont MD Reason For Visit: VAGINAL DELIVERY Diagnosis Discharge Diagnosis (1) (spontaneous vaginal delivery): Status: Acute Code(s): O80 - Encounter for full-term uncomplicated delivery (2) Gestational diabetes mellitus (GDM) affecting , antepartum: Status: Acute Code(s): O24.419 - Gestational diabetes mellitus in , unspecified control Plan s/p PPD # 1 1. routine post delivery care 2. breast feeding- support given 3. rh positive 4. rubella immune 5. d/c insulin today-monitor glucose at home fastings and before meals 6. d/c home today Medications at Discharge Home Medications vit,calcium no.40-iron fum 27 mg iron-folate no.1 1 mg tablet (PNV- Select) 1 tab PO 09/05/23 sodium chloride 0.65 % nasal spray aerosol ([place] Saline) 2 spray intranasal Q4H 11/29/23 blood sugar diagnostic (Blood Glucose Test strips) #120 ea 12/30/23 blood-glucose meter #1 ea 12/30/23 lancets #200 ea 12/30/23 aspirin 81 mg tablet,delayed release 81 mg PO DAILY 01/28/24 levothyroxine 88 mcg tablet 88 mcg PO DAILY #90 tabs 01/28/24 metformin 1,000 mg tablet 1,000 mg PO BID #60 tabs 01/28/24 BD Ultra-Fine Domitila Pen Needle 32 gauge x 5/32 (pen needle, diabetic) #100 ea 02/03/24 BD Ultra-Fine Mini Pen Needle 31 gauge x 3/16 (pen needle, diabetic) #100 ea 02/06/24 insulin NPH isoph U-100 human 100 unit/mL (3 mL) subcutaneous pen (Humulin N NPH U-100 Insulin KwikPen) 30 unit subcut BID 02/18/24 Hospital Course Operations None Procedures None Summary of Care Provided Hospital Course: with IOL for GDM insulin dependent, progressed with cytotec and pitocin to obtain without complications. Physical Exam Const alert and no apparent distress Lymph Lymphatic: no lymphadenopathy noted Resp normal respiratory effort, normal air movement and no retractions Cardio regular rate and regular rhythm GI normal to inspection, nondistended, normoactive bowel sounds Uterus Palpation: uterus fundus firm Extremity normal to inspection, full ROM and normal capillary refill Skin no rashes or lesions noted Psych mental status grossly normal Weight / BMI Weight Weight: 209 lb Body Mass Index (BMI) 34.7 ABG / Lab / Microbiology Data 03/19/24 20:45 D/C Instructions Discharge Diet: No restrictions May resume sexual activity in: 6 weeks Weight Bearing Status: Full weight bearing Call your doctor if your incision/area has: Sudden Increased Bleeding, Increased Pain/ Swelling and Foul Smelling Discharge Call your doctor if you observe: Fever of 101 or Higher, Numbness or Tingling, Change in Color, Inability to urinate, Inability to have a bowel movement, Using more than 1 pad per hour, Shortness of breath, Dizziness, Fainting spells, Chest pain, Calf discomfort and Uncontrolled pain Please Follow Up With: Payton Drew CNM When: 6 weeks , please call office to make an appointment. Congratulations on the of your baby! Meaningful Use Info Meaningful Use Meaningful Use Diagnoses (Choose all that apply): None applicable Ischemic Stroke Statin Dosing Therapy Reference: STATIN DOSE THERAPY REFERENCE: * Patients > 75 years receive moderate or high dose statin therapy. * Patients 75 years or YOUNGER should receive HIGH intensity statin dose unless contraindicated. You will be required to document reason for non-treatment if statin daily dose does not meet guidelines. HIGH DOSE STATIN THERAPY DAILY Atorvastatin > than or = to 40 mg Rosuvastatin > than or = to 20 mg Amlodipine + Atorvastatin > than or = to 2.5/40 mg Ezetimibe + Simvastatin 10/80 mg Simvastatin 80mg Discharge Plan Admission Admit Date/Time: 03/19/24 19:13 Primary Reason for Your Visit: Labor & Delivery Attending Provider: Payton Drew Primary Care Provider: Teto Dumont Instructions Patient Instructions: After a Vaginal Discharge Orders/Prescriptions Prescriptions: No Action PNV-Select 27-1 mg tablet 1 tab PO [place] Saline 0.65 % aerosol,spray 2 spray intranasal Q4H Rx Instructions: while awake Humulin N NPH Insulin KwikPen 100 unit/mL (3 mL) insulin pen 30 unit subcut BID Rx Instructions: 30 units in the AM 24 units in the PM aspirin 81 mg tablet,delayed release (DR/EC) 81 mg PO DAILY metformin 1,000 mg tablet 1,000 mg PO BID Qty: 60 3RF levothyroxine 88 mcg tablet 88 mcg PO DAILY Qty: 90 1RF (DME) Blood Glucose Test Strip See Rx Instructions .MEDSUPPLY Qty: 120 5RF Rx Instructions: As directed-fasting & 2 hr post meals (DME) blood-glucose meter Misc See Rx Instructions .MEDSUPPLY Qty: 1 0RF Rx Instructions: As directed- Test fasting and 2 hours after meals (DME) lancets Misc See Rx Instructions .MEDSUPPLY Qty: 200 5RF Rx Instructions: As directed-fasting & 2 hr post meals (DME) pen needle, diabetic [BD Ultra-Fine Domitila Pen Needle] 32 gauge x 5/32 n [place] See Rx Instructions .ROUTE .MEDSUPPLY Qty: 100 2RF Rx Instructions: bid (DME) pen needle, diabetic [BD Ultra-Fine Mini Pen Needle] 31 gauge x 3/16 needle See Rx Instructions .Route Qty: 100 5RF Rx Instructions: bid Referrals / Follow Up: Teto Dumont MD [Primary Care Provider] - Disposition Disposition (needs filled in before D/C Order can be placed): Home, Self Care
== END 2024-03-22 14:40 | disposition home or self-care (01) | DRG 807 ==
PROVIDERS: Advanced Practice Midwife; Admitting Provider Registered Nurse; PCP Family Medicine; Referring Provider Registered Nurse; Visit Provider Registered Nurse
DX: O24.424 Gestational diabetes mellitus in childbirth, insulin controlled (principal); Z37.0 Single live birth; E06.3 Autoimmune thyroiditis; O69.81X0 Labor and delivery complicated by cord around neck, without compression, not applicable or unspecified; O99.284 Endocrine, nutritional and metabolic diseases complicating childbirth; O99.824 Streptococcus B carrier state complicating childbirth; Z3A.39 39 weeks gestation of pregnancy; Z79.82 Long term (current) use of aspirin; Z79.899 Other long term (current) drug therapy; Z86.16 Personal history of COVID-19
CPT/HCPCS: 59025; 59050; 82962; 85025; 86780; 86850; 86900; 86901; 99221; J7120; A4216; G0378; J2405

== ENCOUNTER → 2024-05-08 | Outpatient (CLI) | payer OTHER, SELFPAY ==
[2024-05-08 17:56] LABS: Free T3 3.9 pg/mL (2.18-3.98); Free T4 1.66 ng/dL (0.76-1.46); Thyroid Stim Hormone (TSH) 0.01 uIU/mL (0.358-3.74)
== END | disposition home or self-care (01) ==
LOC: LAB 16:36
PROVIDERS: PCP Family Medicine; Referring Provider Registered Nurse; Visit Provider Registered Nurse
DX: O80 Encounter for full-term uncomplicated delivery (principal); E06.3 Autoimmune thyroiditis
CPT/HCPCS: 36415; 84439; 84443; 84481

== ENCOUNTER → 2024-06-17 | Outpatient (CLI) | payer OTHER, SELFPAY ==
[2024-06-17 09:33] LABS: T4 Free Direct 1.27 ng/dL (0.76-1.46); Thyroid Stim Hormone (TSH) 0.01 uIU/mL (0.358-3.74)
== END | disposition home or self-care (01) ==
LOC: LAB 08:17
PROVIDERS: PCP Family Medicine; Visit Provider Internal Medicine Endocrinology, Diabetes & Metabolism
DX: E06.3 Autoimmune thyroiditis (principal)
CPT/HCPCS: 36415; 84439; 84443